=== PATIENT | female | born 1945 | race African-American/Black ===

== ENCOUNTER 2017-07-24 23:06 | Emergency (ER) | payer BC ==
[2017-07-25] MEDS ORDERED: Acetaminophen TAB* 325 MG PO ONE (02:34)
[2017-07-25] MEDS ORDERED: traMADol TAB* 50 MG PO ONE (02:59)
--- NOTE | 2017-07-25 03:10 | ED ---
Noah Espitia Angela, scribed for Ellen Botello MD on 07/25/17 at 0253 . Upper Extremity Pain - HPI Summary HPI Summary: This pt is a 71 y/o female presenting to [facility] c/o left shoulder pain since 16: 30 yesterday, 07/24/17. Pt reports she was at work in her office typing in her computer when she suddenly had sharp pain in her left shoulder. She denies any trauma or injury. Pt notes that when she went home after work her pain was radiating down her left arm. At approximately 21:00 last night her pain was worse and her left arm became numb. She additionally notes some left sided neck pain. PMHx: right rotator cuff problems. Allergic to NSAIDs. - History of Current Complaint Chief Complaint: EDExtremityUpper Stated Complaint: LEFT ARM NUMBNESS Time Seen by Provider: 07/25/17 02:22 Hx Obtained From: Patient Mechanism Of Injury: Other - no trauma Onset/Duration: Started Hours Ago, Atraumatic, Still Present Timing: Lasting Hours Severity Currently: Moderate Pain Location: Shoulder - left Character: Sharp Aggravating Factor(s): Abduction Alleviating Factor(s): Rest Associated Signs & Symptoms: Positive: Numbness/Tingling - numbness in left arm , Other - left sided neck pain - Allergies/Home Medications Allergies/Adverse Reactions: Allergies Allergy/AdvReac Type Severity Reaction Status Date / Time alendronate sodium Allergy Swelling Verified 07/24/17 23:27 [From Fosamax] Of Face,Lips,& Throat NSAIDS (Non-Steroidal Allergy GI Upset Verified 07/24/17 23:27 Anti-Inflamma PMH/Surg Hx/FS Hx/Imm Hx Endocrine/Hematology History: Denies: Hx Diabetes Cardiovascular History: Reports: Hx Hypertension - MEDICATED Denies: Hx Pacemaker/ICD Respiratory History: Denies: Hx Asthma Musculoskeletal History: Denies: Hx Rheumatoid Arthritis, Hx Osteoporosis - OSTEOPENIA Sensory History: Denies: Hx Hearing Aid Psychiatric History: Denies: Hx Panic Disorder - Cancer History Cancer Type, 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 1981 D&C - Immunization History Date of Tetanus Vaccine: Unsure Date of Influenza Vaccine: 2012 Infectious Disease History: No Infectious Disease History: Denies: Traveled Outside the [place] in Last 30 Days - Family History Known Family History: Positive: Cardiac Disease - Social History Alcohol Use: Occasionally Substance Use Type: Reports: None Smoking Status (MU): Never Smoked Tobacco Review of Systems Negative: Fever ENT: Negative Cardiovascular: Negative Respiratory: Negative Gastrointestinal: Negative Musculoskeletal: Other - left shoulder pain, left sided neck pain Positive: Numbness - left arm All Other Systems Reviewed And Are Negative: Yes Physical Exam - Summary Physical Exam Summary: VITAL SIGNS: Reviewed. GENERAL: Patient is a well-developed and nourished female who is lying comfortable in the stretcher. Patient is not in any acute respiratory distress. HEAD AND FACE: No signs of trauma. No ecchymosis, hematomas or skull depressions. No sinus tenderness. EYES: PERRLA, EOMI x 2, No injected conjunctiva, no nystagmus. EARS: Hearing grossly intact. Ear canals and tympanic membranes are within normal limits. MOUTH: Oropharynx within normal limits. NECK: Supple, trachea is midline, no adenopathy, no JVD, no carotid bruit, no c- spine tenderness, neck with full ROM. CHEST: Symmetric, no tenderness at palpation LUNGS: Clear to auscultation bilaterally. No wheezing or crackles. CVS: Regular rate and rhythm, S1 and S2 present, no murmurs or gallops appreciated. ABDOMEN: Soft, non-tender. No signs of distention. No rebound no guarding, and no masses palpated. Bowel sounds are normal. EXTREMITIES: no edema, no cyanosis or clubbing. LUE: left shoulder with no deformity. There is pain with internal rotation and abduction. Neurovascular exam is intact. NEURO: Alert and oriented x 3. No acute neurological deficits. Speech is normal and follows commands. SKIN: Dry and warm Triage Information Reviewed: Yes Vital Signs On Initial Exam: Initial Vitals Temp Pulse Resp BP Pulse Ox 97.8 F 77 18 170/87 99 07/24/17 23:22 07/24/17 23:22 07/24/17 23:22 07/24/17 23:22 07/24/17 23:22 Vital Signs Reviewed: Yes Diagnostics - Vital Signs Vital Signs Temp Pulse Resp BP Pulse Ox 07/25/17 01:24 98.1 F 56 16 173/96 100 07/24/17 23:22 97.8 F 77 18 170/87 99 - Laboratory Lab Statement: Any lab studies that have been ordered have been reviewed, and results considered in the medical decision making process. - Radiology Left shoulder XR Xray Interpretation: No Acute Changes - No fracture is seen. Pending official radiology report. Radiology Interpretation Completed By: ED Physician Re-Evaluation - Re-Evaluation First Eval Re-Evaluation Time: 02:57 Comment: I reviewed the XR results with the pt. She will be discharged home. Course/Dx - Course Assessment/Plan: This pt is a 71 y/o female presenting to [facility] c/o left shoulder pain since 16:30 yesterday, 07/24/17. Pt reports she was at work in her office typing in her computer when she suddenly had sharp pain in her left shoulder. She denies any trauma or injury. Pt notes that when she went home after work her pain was radiating down her left arm. At approximately 21:00 last night her pain was worse and her left arm became numb. She additionally notes some left sided neck pain. PMHx: right rotator cuff problems. Left shoulder XR shows no fracture. In the ED course the pt was given Tylenol and tramadol. Pt's pain is possibly caused by a rotator cuff sprain/tear. She will be discharged home with follow up from orthopedics. Pt was given a prescription for tramadol. - Diagnoses Provider Diagnoses: Left shoulder pain Discharge - Sign-Out/Discharge Documenting (check all that apply): Discharge/Admit/Transfer - Discharge - Discharge Plan Condition: Stable Disposition: HOME Prescriptions: Tramadol HCl [Ultram] 50 mg PO Q6HR PRN #20 tablet MDD 4 PRN Reason: Pain Patient Education Materials: Shoulder Pain (ED) Referrals: Jennifer Toth MD [Primary Care Provider] - Sam Montano MD [Medical Doctor] - Additional Instructions: Follow up with Dr. Montano, orthopedist. Please follow up with your primary care provider. RETURN TO EMERGENCY DEPARTMENT FOR ANY NEW OR WORSENING SYMPTOMS. The documentation as recorded by the Noah emery Angela accurately reflects the service I personally performed and the decisions made by me, Ellen Botello MD.
[2017-07-25 03:26] VITALS: BP 161/92
--- NOTE | 2017-07-25 08:10 | RAD ---
Indication: LEFT shoulder pain without significant preceding traumatic injury. Comparison: No relevant prior exams available on the [facility] for comparison. Technique: Internal and external rotation AP and scapular Y views LEFT shoulder Report: Normal acromioclavicular and glenohumeral joint alignment. Mild acromioclavicular and moderate glenohumeral joint osteophytosis. Mild glenohumeral joint space narrowing. Negative for fracture, stigmata of calcific tendinopathy, or abnormal soft tissue contour. IMPRESSION: Osteoarthritis.
== END 2017-07-25 03:25 | disposition home or self-care (01) ==
LOC: ED 23:06
DX: M25.512 Pain in left shoulder (principal); M19.012 Primary osteoarthritis, left shoulder; M54.2 Cervicalgia; R20.0 Anesthesia of skin; D07.1 Carcinoma in situ of vulva; I10 Essential (primary) hypertension; Z88.6 Allergy status to analgesic agent; Z88.8 Allergy status to other drugs, medicaments and biological substances
CPT/HCPCS: 99282; A9270-GY

== ENCOUNTER 2019-04-29 15:50 | Emergency (ER) | payer MEDICARE, BC ==
--- OUTSIDE RECORDS SUMMARY | 2019-04-29 15:57 | XMS REPORT | Continuity of Care Document ---
:1945 External Reference #:[id number] Author Name Ric Taylor M.D. (transmitted by agent of provider Mary Miller) Address [address] 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/25/2017 Seasonal allergic rhinitis Onset: 04/13/2016 Thoracic herpes zoster infection Onset: 04/13/2016 Leukopenia Onset: 10/05/2015 Essential hypertension Onset: 08/17/2014 Trochanteric bursitis Onset: 03/19/2014 Acute allergic serous otitis media Onset: 08/21/2013 Inflammation of rotator cuff tendon Onset: 08/21/2013 Intermittent palpitations Onset: 08/21/2013 Liver cyst Onset: 05/19/2013 History of calculus of kidney Onset: 03/28/2013 Osteoarthritis Onset: 01/27/2013 Osteopenia Onset: 03/19/2006 Malignant tumor of vulva Onset: 11/03/1996 Dysplasia of cervix Onset: 03/19/1981 Social History Type Date Description Comments Sex Unknown Tobacco Use Start: Unknown Never Smoked Cigarettes Smoking Status Reviewed: 03/29/18 Never Smoked Cigarettes ETOH Use Occasionally consumes beer ETOH Use Occasionally consumes wine Tobacco Use Start: Unknown Patient has never smoked Recreational Drug Use Denies Drug Use Exercise Type/Frequency Exercises regularly walking (2 miles 3 x a week), swimming (1 day per week), spinning (1 day per week) Allergies, Adverse Reactions, Alerts Active Allergies Reaction Severity Comments Date NSAIDs avoid d/t esophagitis 09/18/2013 Fosamax esophagitis 09/18/2013 Hydralazine Other Severe 03/19/2019 Ibuprofen 03/19/2019 Medications Active Medications SIG Qnty Indications Ordering Provider Date Atenolol 1/2 by mouth 90tabs Unknown 25mg Tablets every day Ramipril 1 by mouth bid 90caps Unknown 10mg Capsules Calcium 1 po qd Unknown 600mg Multivitamins 1 capsule clarence;y 30caps Unknown Capsules Vitamin D 1 by mouth every Unknown 2000Unit day Tablets Valacyclovir HCL 1 by mouth twice Unknown 500mg a day as needed Tablets Medications Administered in Office Medication SIG Qnty Indications Ordering Provider Date Td(Adult),Unspecified Unknown 10/19/1997 Injection Immunizations CPT Code Status Date Vaccine Lot # [id number] Given 12/16/2018 Influenza Virus Vaccine, Quadrivalent, Split, Im Use 6-35mo [id number] Given 12/26/2017 Influenza Virus Vaccine, Quadrivalent, Split, Im Use 6-35mo [id number] Given 12/26/2016 Influenza Virus Vaccine, Quadrivalent, Split, Im Use 6-35mo [id number] Given 12/27/2015 Influenza Virus Vaccine, Quadrivalent, Split, Im Use 6-35mo 41654 Given 03/27/2015 Pneumococcal Conjugate Vaccine 13 Valent For Intramuscular Use 23272 Given 01/27/2015 Influenza Virus Vaccine, Quadrivalent, Split, Im Use 6-35mo 44186 Given 01/27/2014 Influenza Virus Vaccine, Quadrivalent, Split, Im Use 6-35mo 05880 Given 11/07/2010 Pneumonia Vaccine 89794 Given 06/22/2010 Zoster (Zostavax) [id number] Given 04/02/2009 Tdap - Tetanus/Diptheria/Acellular Pertussis 37940 Given 01/27/2005 Influenza Virus Vaccine, Quadrivalent, Split, Im Use 6-35mo 61011 Given Unknown Zoster (Shingles) Vaccine (HZV), Recombinant, Subunit, Adjuvanted 58224 Given Unknown Pneumococcal Conjugate Vaccine 13 Valent For Intramuscular Use Vital Signs Date Vital Result Comment 12/18/2018 12:00am Height 63.5 inches Weight 149.19 lb BP Systolic 138 mmHg BP Diastolic 78 mmHg BMI (Body Mass Index) 26 kg/m2 11/20/2018 12:00am Height 63.5 inches Weight 145.00 lb BMI (Body Mass Index) 25.3 kg/m2 Results Test Acquired Facility Test Result H/L Range Note Date aldosterone 12/19/2018 N2N/CCD Import aldosterone <4.0 <=21 Renin [Enzymatic 12/19/2018 N2N/CCD Import renin <0.6 activity/volume] in Plasma TSH (thyroid 12/16/2018 N2N/CCD Import TSH (thyroid 0.34 0.34-5.60 stimulating horm) stimulating mciu/mL horm) Comprehensive 2018 N2N/CCD Import sodium 140 mmol/L 135-145 metabolic 2000 panel - Serum or Plas potassium 3.8 mmol/L 3.5-5.0 chloride 108 mmol/L 101-111 Co2 carbon dioxide 26 mmol/L 22-32 anion gap 6 mmol/L 2-11 glucose 108 mg/dL High 70-100 blood urea nitrogen 11 mg/dL 6-24 creatinine 0.67 mg/dL 0.51-0.95 BUN/creatinine ratio 16.4 8-20 calcium 9.4 mg/dL 8.6-10.3 total protein 6.4 g/dL 6.4-8.9 albumin 4.2 g/dL 3.2-5.2 globulin 2.2 g/dL 2-4 albumin/globulin ratio 1.9 1-3 total bilirubin 0.40 mg/dL 0.2-1.0 alkaline phosphatase 65 U/L 34-104 Alt 10 U/L 7-52 Ast 22 U/L 13-39 eGFR non- 86.3 >60 eGFR 104.4 >60 CBC W Auto 2018 N2N/CCD Import white blood 4.5 10_3/uL 3.5-10.8 Differential panel - count Blood red blood count 4.48 10_6_/uL 3.70-4.87 hemoglobin 12.8 g/dL 12.0-16.0 hematocrit 38 % 35-47 mean corpuscular volume 84 fL 80-97 mean corpuscular hemoglobin 29 pg 27-31 mean corpuscular HGB conc 34 g/dL 31-36 red cell distribution width 14 % 10-15 platelet count 183 10_3/uL 150-450 mean platelet volume 11.3 fL High 7.4-10.4 abs neutrophils 3.1 10_3/uL 1.5-7.7 abs lymphocytes 1.0 10_3/uL 1.0-4.8 abs monocytes 0.3 10_3/uL 0-0.8 abs eosinophils 0.1 10_3/uL 0-0.6 abs basophils 0.0 10_3/uL 0-0.2 abs nucleated RBC 0.0 10_3/uL granulocyte % 67.2 % lymphocyte % 22.6 % monocyte % 7.1 % eosinophil % 2.2 % basophil % 0.9 % nucleated red blood cells % 0.0 Lipid 1996 panel - Serum or 10/14/2018 N2N/CCD Import triglycerides 58 mg/ dL Plasma cholesterol 162 mg/dL HDL cholesterol 65.7 mg/dL Cholesterol in LDL [Mass/volume] in Serum or Plasma 85 mg/dL Procedures Date Code Description Status 04/07/2019 45683 Holter Monitor Review (24 hr)dr review & interp only Completed 04/07/2019 66092 ECG Monitor/Recording W/Visual Superimposition Scanning Completed 03/19/2007 69904497 Colonoscopy Completed Medical Devices Description No Information Available Encounters Description No Information Available Assessments Date Code Description Provider 04/07/2019 R00.2 Palpitations Nurse Visit IC Plan of Treatment Future Appointment(s):05/14/2019 2:00 pm - Jennifer Cortez MD at [facility]03/29/2018 - Ric Taylor M.D.R00.2 PalpitationsFollow up:As [id number] Encounter for preprocedural cardiovascular examinationRecommendations:Cardiac status stable for proposed [id number] Umbilical hernia without obstruction or gangrene Functional Status Description No Information Available Mental Status Description No Information Available Referrals Description No Information Available
[2019-04-29 16:09] VITALS: BP 125/67
--- NOTE | 2019-04-29 17:16 | UC ---
Throat Pain/Nasal Gennaro HPI - HPI Summary HPI Summary: 73-year-old female presents with 2 week history of nasal congestion, sinus pressure, sore throat, and occasionally productive cough. States that after about a week of symptoms her nasal congestion and sinus pressure improved and her only mild at present however her cough has persisted and worsened over the last 4-5 days. States that cough is productive. Was initially clear sputum but now is a yellowish-green. States she has been having intermittent low- grade fevers from 100.4-100.7 F. She has been taking Mucinex and Tylenol with some relief in symptoms. Denies ear pain, dysphagia, chest pain, shortness of breath, abdominal pain, nausea, vomiting, or diarrhea. - History of Current Complaint Chief Complaint: UCRespiratory Stated Complaint: COUGH Time Seen by Provider: 04/29/19 16:59 Hx Obtained From: Patient Hx Last Menstrual Period: post Pain Intensity: 4 - Allergies/Home Medications Allergies/Adverse Reactions: Allergies Allergy/AdvReac Type Severity Reaction Status Date / Time hydroxyzine Allergy Severe Vomiting Verified 04/29/19 16:10 alendronate sodium Allergy Swelling Verified 11/11/18 18:01 [From Fosamax] Of Face,Lips,& Throat NSAIDS (Non-Steroidal Allergy GI Upset Verified 11/11/18 18:01 Anti-Inflamma PMH/Surg Hx/FS Hx/Imm Hx Cardiovascular History: Hypertension - Surgical History Surgical History: Yes Surgery Procedure, Year, and Place: 1996 LASAR SURGERY [place]. 1982 D&C. umbilical hernia 2018 - Family History Known Family History: Positive: Cardiac Disease, Other - stroke - Social History Occupation: Retired Lives: Alone Alcohol Use: Occasionally Substance Use Type: None Smoking Status (MU): Never Smoked Tobacco Review of Systems All Other Systems Reviewed And Are Negative: Yes Constitutional: Positive: Fever, Chills. Negative: Fatigue Eyes: Negative: Drainage, Eye Redness ENT: Positive: Sore Throat, Nasal Discharge, Sinus Congestion, Sinus Pain/ Tenderness. Negative: Ear Ache Respiratory: Positive: Cough. Negative: Shortness Of Breath Cardiovascular: Negative: Palpitations, Chest Pain Gastrointestinal: Negative: Abdominal Pain, Vomiting, Diarrhea, Nausea Genitourinary: Positive: Negative Musculoskeletal: Positive: Negative Neurological/Mental Status: Positive: Negative Physical Exam - Summary Physical Exam Summary: GENERAL APPEARANCE: Well developed, well nourished, alert and cooperative, and appears to be in no acute distress. EYES: Conjunctiva clear. No drainage. EARS: External auditory canals and tympanic membranes clear, hearing grossly intact. NOSE: Mild nasal congestion. No nasal discharge. THROAT: Pharyngeal cobblestoning. No tonsilar inflammation, swelling, exudate, or lesions. Uvula midline. NECK: Neck supple, non-tender without lymphadenopathy. CARDIAC: Normal S1 and S2. No S3, S4 or murmurs. Rhythm is regular. There is no peripheral edema, cyanosis or pallor. Extremities are warm and well perfused. Capillary refill is less than 2 seconds. Peripheral pulses intact. LUNGS: Clear to auscultation without rales, rhonchi, wheezing or diminished breath sounds. Loose nonproductive cough. ABDOMEN: Positive bowel sounds. Soft, nondistended, nontender. No guarding or rebound. No masses or hepatosplenomegally. MUSKULOSKELETAL: ROM intact to all extremities. No joint erythema or tenderness. Normal muscular development. Normal gait. SKIN: Skin normal color, texture and turgor with no lesions or eruptions. Triage Information Reviewed: Yes Vital Signs: Initial Vital Signs Temp 99 F 04/29/19 16:04 Pulse 73 04/29/19 16:04 Resp 16 04/29/19 16:04 BP 125/67 04/29/19 16:04 Pulse Ox 99 04/29/19 16:04 Vital Signs Reviewed: Yes Throat Pain/Nasal Course/Dx - Course Course Of Treatment: 73-year-old female presents with 2 week history of nasal congestion, sinus pressure, sore throat, and occasionally productive cough. States that after about a week of symptoms her nasal congestion and sinus pressure improved and her only mild at present however her cough has persisted and worsened over the last 4-5 days. States that cough is productive. Was initially clear sputum but now is a yellowish-green. States she has been having intermittent low- grade fevers from 100.4-100.7 F. She has been taking Mucinex and Tylenol with some relief in symptoms. Denies ear pain, dysphagia, chest pain, shortness of breath, abdominal pain, nausea, vomiting, or diarrhea. Afebrile. Vital signs stable. Patient had mild nasal congestion, normal TMs, pharyngeal cobblestoning without tonsillar swelling or exudate, negative cervical lymphadenopathy, clear bilateral breath sounds, a loose nonproductive cough, and otherwise unremarkable exam. Discussed with the patient that her symptoms were consistent with an upper respiratory infection with cough however considering the duration of symptoms and the persistent low-grade fevers I'm concerned that she may have a secondary bacterial infection and recommended treatment with Augmentin 875 mg twice a day 10 days as well as continued symptomatic treatment including Tessalon Perles 1 capsule every 8 hours as needed for cough. She is to follow-up with her primary care provider in 3-5 days if symptoms are not improving. Anticipatory guidance and warning symptoms were reviewed with the patient. Verbalizes understanding and agrees with plan of care. - Differential Dx/Diagnosis Differential Diagnosis/HQI/PQRI: Sinusitis, URI, Other - Bronchitis, pneumonia Provider Diagnosis: Upper respiratory infection with cough and congestion Discharge ED - Sign-Out/Discharge Documenting (check all that apply): Patient Departure All imaging exams completed and their final reports reviewed: No Studies - Discharge Plan Condition: Stable Disposition: HOME Prescriptions: Amoxicillin/Clavulanate TAB* [Augmentin TAB 875*] 875 mg PO BID 10 Days #20 tab Benzonatate CAP* [Tessalon 100 MG CAP*] 100 mg PO TID PRN #21 cap PRN Reason: Cough Patient Education Materials: Upper Respiratory Infection (ED) Referrals: Jennifer Toth MD [Primary Care Provider] - 3 Days Additional Instructions: Your history and exam are consistent with a upper respiratory infection with cough. Considering the duration of your symptoms are persisting fever I am concerned that you may have a secondary bacterial infection and will treat with an antibiotic for the ear infection. Start Augmentin 875 mg twice daily for 10 days. Take with food to avoid upset stomach. Be sure to complete the entire course even if feeling better. Be aware that the cough may persist for 2-3 weeks even after treatment. Get plenty of rest. Drink plenty of fluids. Run a cool mist humidifer in your room at night. Take over the counter acetaminophen (Tylenol) according to directions as needed for pain or fever. Take Tessalon Perles 1 cap every 8 hours as needed for cough. Follow up with your primary care provider in 3-5 days if symptoms do not improve. Seek immediate medical attention in the emergency room if you have fever greater than 100.5 F despite taking acetaminophen or ibuprofen, have chest pain , difficulty breathing, or have any worsening of symptoms. - Billing Disposition and Condition Condition: STABLE Disposition: Home - Attestation Statements Provider Attestation: I was available for consult. This patient was seen by the LINDA. The patient was not presented to, seen by, or examined by me. -Ramses
== END 2019-04-29 17:33 | disposition home or self-care (01) ==
LOC: UCEAST 15:50
DX: J06.9 Acute upper respiratory infection, unspecified (principal); R05 Cough; R09.89 Other specified symptoms and signs involving the circulatory and respiratory systems; Z88.8 Allergy status to other drugs, medicaments and biological substances; Z88.6 Allergy status to analgesic agent
CPT/HCPCS: 99211; G0463